=== PATIENT | female | born 1975 | race Caucasian/White ===

== ENCOUNTER → 2024-02-19 15:25 | Outpatient (REF) | payer OTHER, SELFPAY | LOC: HWWDC 15:25 | PROVIDERS: ATTENDING PHYSICIAN Internal Medicine | DX: Z12.31 Encounter for screening mammogram for malignant neoplasm of breast (principal) | CPT/HCPCS: 77063; 77067 ==

== ENCOUNTER 2025-03-26 20:58 | Emergency (ER) | payer OTHER, SELFPAY ==
[2025-03-26 21:02] VITALS: BP 114/73
--- NOTE | 2025-03-26 21:40 | ED.GENMED ---
History of Present Illness
General
Chief Complaint: Back Pain
Source: patient
Time Seen by Provider: 03/26/25 21:19
History of Present Illness
History of Present Illness:
50-year-old female presents to the emergency room complaining low back pain. Pain is located in the right side and radiates down to her knee. Pain is worse with movement. She sometimes feels a catching or creaking type sensation with certain
movements. Patient is typically very flexible and performs yoga regularly but recently has not been able to do so because of the back pain. Pain actually began months ago and she was treating it with occasional doses of NSAIDs. Pain seem to
settle down and she sort of forgot about it until it returned recently. When it originally started the pain was confined to the low back. Currently she is now experiencing pain radiating down to the knee. She denies any leg weakness. She denies
any bowel or bladder dysfunction. She denies any perineal numbness or tingling.
Past History
Past History
ED Past Medical History: None
ED Past Surgical History: Other (hernia repair)
Social History
Tobacco: Non-smoker
Alcohol: None
Drug: None
Personal:
Living: with family
Employment: Employed
Phy Exam
Physical Exam
Physical Exam:
General: Awake, Alert, Oriented X3. No acute distress.
Vitals: unremarkable
Head: Atraumatic
Eyes: Pupils equal, EOMI
Throat: Airway intact, no exudates
Neck: Trachea midline
Lungs: Clear and equal b/l
Heart: Regular rate, no murmurs
Abd: Soft, Nontender, No pulsatile mass
Back: Some tenderness to palpation right paraspinal muscular upper SI region.
Neuro: Nonfocal. Bilateral patellar and S1 reflex intact. Muscle strength intact. Sensation intact.
Skin: Warm, dry, no rash
Extremities: pulses equal b/l, no edema
Course
Orders/Labs/Results
Orders:
Orders
03/26/25 21:39
Ketorolac [Toradol] 30 mg IM NOW STA
Lumbar Spine Complete, 4 View [CR Lumbar Spine Comp Min 4 Vw*] Urgent
Comment:
Reason For Exam: low back pain
03/26/25 22:35
Cyclobenzaprine HCl [Flexeril] 10 mg PO NOW STA
Vital Signs
Initial and Last Documented VS:
Initial Vital Signs
Temp Pulse Resp BP Pulse Ox
98.0 F 65 20 114/73 96
03/26/25 21:02 03/26/25 21:02 03/26/25 21:02 03/26/25 21:02 03/26/25 21:02
Last Documented Vital Signs
Temp Pulse Resp BP Pulse Ox
98.0 F 65 20 114/73 96
03/26/25 21:02 03/26/25 21:02 03/26/25 21:02 03/26/25 21:02 03/26/25 21:42
MDM/Problems Addressed
Differential Diagnosis Includes:
Lumbar strain, para spinal muscular spasm, lumbar disc disease with radiculopathy
MDM/Problems Addressed:
Patient presents with continued low back pain with some radiation to her knee and perhaps down below to the leg. No weakness. Lumbar film show no acute abnormality. We will start a short course of steroids, muscle relaxant. Recommend follow-up
with primary care provider and perhaps Dr. Mina.
*Radiology
Radiology exam reviewed: radiology read reviewed
*Pulse Oximetry
SaO2: 96
Oxygen Mode of Delivery: Room air
Patient hypoxic: no
*Critical Care Note
Total Time (30-74mins, 75-104mins- exclusive of procedures): Not Applicable
ED Attending Note
-
Portions of this chart may have been created with voice recognition software.� Occasional wrong word or��sound alike� substitutions may have occurred due to the inherent limitations of voice recognition software.
Discharge Plan
Departure
Patient Disposition: Home (Routine Discharge)
Date of Disposition: 03/26/25
Time of Disposition: 22:17
Patient with high blood pressure during this ER visit?: No
Condition: Good
Discharge Problem:
Low back pain
Instructions: Low Back Pain (DC), Radiculopathy (DC)
Prescriptions:
New
prednisone 20 mg tablet
40 mg PO DAILY Qty: 10 0RF
metaxalone 800 mg tablet
800 mg PO TID PRN (Reason: back pain) Qty: 20 0RF
ibuprofen 600 mg tablet
600 mg PO QID PRN (Reason: Pain) Qty: 30 0RF
No Action
doxepin 10 MG capsule
10 mg PO DAILY
Control
1 tab PO DAILY
prednisone 10 MG tablet
10 mg PO .TAPER Qty: 45 0RF
Rx Instructions:
Take 50mg daily x3days, 40mg daily x3days,
30mg daily x3days, 20mg daily x3days,
10mg daily x3days
cephalexin 500 MG capsule
500 mg PO QID Qty: 20 0RF
prednisone 50 MG tablet
50 mg PO DAILY Qty: 3 0RF
triamcinolone acetonide 0.5 % cream
1 applic topical TID Qty: 15 0RF
Rx Instructions:
Apply to affected area as directed
prednisone 10 mg Tablet
See Rx Instructions .ROUTE .COMPLEX Qty: 30 0RF
Rx Instructions:
Take By Mouth:
40 mg daily x3 days, 30 mg daily x3 days,
20 mg daily x3 days, 10 mg daily x3 days.
hydroxyzine HCl 25 mg tablet
25 mg PO TID PRN (Reason: itching) Qty: 10 0RF
Referrals:
Hugo Mina MD [Active, Anesthesiology]
Litzy Tijerina CRNP [Family Provider, Internal Medicine]
Interventions
Interventions:
*Risk Screen - Suicide Last Done: 03/26/25 21:31
*General Assessment Last Done: 03/26/25 21:02
*Neglect/Abuse Screening Last Done: 03/26/25 21:31
*ED- Fall Risk Assessment Last Done: 03/26/25 21:31
*ED COVID-19 Vaccine History Last Done: 03/26/25 21:31
*Nursing Disposition Last Done: 03/26/25 23:00
ED-Musculoskeletal Assessment Last Done: 03/26/25 21:31
Discharge Date and Time
Discharge Date/Time: 03/26/25 23:00
Print Language: POLISH
[2025-03-26] MEDS: TORADOL 30 MG IM (21:42)
[2025-03-26] MEDS: FLEXERIL 10 MG PO (22:39)
== END 2025-03-26 23:00 | disposition home or self-care (01) ==
LOC: EMR 20:58
PROVIDERS: EMERGENCY PHYSICIAN Emergency Medicine; FAMILY PHYSICIAN Nurse Practitioner
DX: M54.50 Low back pain, unspecified (principal)
CPT/HCPCS: 99284; 96372; 72110

== ENCOUNTER → 2025-04-03 10:02 | Outpatient (REF) | payer OTHER, SELFPAY | LOC: WDC 10:02 | PROVIDERS: ATTENDING PHYSICIAN Physician Assistant Medical | DX: Z12.31 Encounter for screening mammogram for malignant neoplasm of breast (principal) | CPT/HCPCS: 77063; 77067 ==

== ENCOUNTER → 2025-08-27 14:07 | Outpatient (REF) | payer OTHER, SELFPAY | LOC: HWRAD 14:07 | PROVIDERS: ATTENDING PHYSICIAN Obstetrics & Gynecology; FAMILY PHYSICIAN Internal Medicine | DX: N93.9 Abnormal uterine and vaginal bleeding, unspecified (principal) | CPT/HCPCS: 76830; 76856 ==